=== PATIENT | male | born 1950 | race African-American/Black ===

== ENCOUNTER 2018-02-11 12:06 | Inpatient (IN) | payer MEDICARE, MEDICAID ==
[~2018-02-11] VITALS: Ht 193 cm; Wt 101.4 kg
[~2018-02-11 12:06] MED LIST: AMLO2.5T45 PO; HYDR-4133 PO
[2018-02-11 16:10] LABS: BASOPHILS % 0.6 % (0.0-2.0); EOSINOPHILS % 3.4 % (0.0-5.0); HEMOGLOBIN. 10.1 g/dL (14.0-18.0); LYMPHOCYTES % 31.9 % (20.0-50.0); MEAN CORPUSCULAR HEMOGLOBIN 25.6 pg (28.0-32.0); MEAN CORPUSCULAR VOLUME 78.4 fL (80.0-94.0); MEAN PLATELET VOLUME 7.8 fl (7.4-10.4); MONOCYTES % 11.6 % (2.0-8.0); NEUTROPHILS % 52.5 % (40.0-76.0); PLATELET 217 x1000/uL (130-400); RED BLOOD CELL COUNT 3.96 mill/uL (4.7-6.1); RED CELL DISTRIBUTION WIDTH 14.5 % (11.6-14.6)
[2018-02-11 16:15] LABS: CHLORIDE 110 mEq/L (98-107)
[2018-02-11 16:19] LABS: D-DIMER 0.35 mg/L FEU (<0.50); INR 1.1; PROTHROMBIN TIME 10.9 sec (9.1-11.1)
[2018-02-11] MEDS ORDERED: POTASSIUM CHLORIDE 20MEQ TABLET SR PO ONE (17:00)
[2018-02-11] MEDS ORDERED: CLONIDINE 0.1MG TABLET PO PRN (17:15)
[2018-02-11] MEDS ORDERED: ONDANSETRON HCL 4MG/2ML INJ IV PRN (17:15)
[2018-02-11] MEDS ORDERED: ACETAMINOPHEN 325MG TABLET PO PRN (17:15)
[2018-02-11] MEDS ORDERED: HYDROMORPHONE HCL/PF 2MG/ML CPJ IV PRN (23:00)
[2018-02-11 23:30] VITALS: BP 155/75
[2018-02-12] MEDS ORDERED: IPRATROPIUM/ALBUTEROL 0.5-3(2.5)MG/3ML NEB INH SCH
[2018-02-12] MEDS ORDERED: ROSU20TA PO (01:57)
[2018-02-12] MEDS ORDERED: TAMS-11 PO (01:58)
[2018-02-12] MEDS ORDERED: DOCU100T PO (01:58)
[2018-02-12] MEDS ORDERED: LACT10SO7 PO (02:00)
[2018-02-12] MEDS ORDERED: HYDR-4135 PO (02:00)
[2018-02-12] MEDS ORDERED: PREG50CA PO (02:01)
[2018-02-12] MEDS ORDERED: FAMO-135 PO (02:02)
[2018-02-12] MEDS ORDERED: AMLO10TA4 PO (02:02)
[2018-02-12] MEDS ORDERED: [UNRECOGNIZED DRUG - CODE] PO (02:02)
[2018-02-12] MEDS ORDERED: ACET-2178 PO (02:03)
[2018-02-12] MEDS ORDERED: CHOL200074 PO (02:04)
[2018-02-12] MEDS ORDERED: ONDA4SOL2 PO (02:05)
[2018-02-12 04:00] VITALS: BP 154/79
[2018-02-12 08:00] VITALS: BP 140/72
[2018-02-12] MEDS: FUROSEMIDE 40MG/4ML VIAL IV SCH (08:55)
[2018-02-12] MEDS ORDERED: ENOXAPARIN 40MG/0.4ML SYR SUBCUT SCH (09:00)
[2018-02-12] MEDS: POTASSIUM CHLORIDE 20MEQ TABLET SR PO SCH (11:27)
[2018-02-12 12:00] VITALS: BP 154/80
[2018-02-12] MEDS: AMLODIPINE 5MG TABLET PO SCH ×2 (13:50→21:47)
[2018-02-12 16:00] VITALS: BP 122/66
[2018-02-12] MEDS ORDERED: DEXTROSE 50% WATER 50ML SYRINGE IV PRN (19:00)
[2018-02-12 20:00] VITALS: BP 140/68
[2018-02-12] MEDS: BLOOD SUGAR DIAGNOSTIC STRIP TEST SCH (20:08)
[2018-02-12] MEDS: INSULIN LISPRO 100 UNITS/ML SUBCUT SCH (20:15)
[2018-02-12] MEDS: ENOXAPARIN 30MG/0.3ML SYR SUBCUT SCH (20:30)
[2018-02-12] MEDS: ATORVASTATIN CALCIUM 10MG TABLET PO SCH (20:30)
[2018-02-13] VITALS: BP 147/60
[2018-02-13 04:00] VITALS: BP 155/72
[2018-02-13] MEDS: BLOOD SUGAR DIAGNOSTIC STRIP TEST SCH ×4 (06:48→20:31)
[2018-02-13 07:44] LABS: CHLORIDE 113 mEq/L (98-107)
[2018-02-13] MEDS: INSULIN LISPRO 100 UNITS/ML SUBCUT SCH ×4 (07:50→20:44)
[2018-02-13 07:55] LABS: HDL CHOLESTEROL 40 mg/dL (40-59); LDL CHOLESTEROL 44 mg/dL (5-100); T4 FREE 1.26 ng/dL (0.76-1.46)
[2018-02-13 08:00] VITALS: BP 137/67
[2018-02-13] MEDS: POTASSIUM CHLORIDE 20MEQ TABLET SR PO SCH (08:57)
[2018-02-13] MEDS: FUROSEMIDE 40MG/4ML VIAL IV SCH (08:57)
[2018-02-13] MEDS: AMLODIPINE 5MG TABLET PO SCH ×2 (08:58→20:32)
[2018-02-13] MEDS: ENOXAPARIN 30MG/0.3ML SYR SUBCUT SCH ×2 (09:05→20:31)
[2018-02-13 12:00] VITALS: BP 138/75
[2018-02-13] MEDS ORDERED: POTASSIUM CHLORIDE 20MEQ TABLET SR PO NR ×2 (12:00→20:00)
[2018-02-13 16:00] VITALS: BP 141/62
[2018-02-13 20:00] VITALS: BP 155/72
[2018-02-13] MEDS: ATORVASTATIN CALCIUM 10MG TABLET PO SCH (20:32)
[2018-02-14] VITALS (7 sets, daily range): BP systolic 108–160; BP diastolic 67–88
[2018-02-14] MEDS: BLOOD SUGAR DIAGNOSTIC STRIP TEST SCH ×3 (06:24→17:20)
[2018-02-14] MEDS: INSULIN LISPRO 100 UNITS/ML SUBCUT SCH ×3 (07:50→17:50)
[2018-02-14] MEDS: POTASSIUM CHLORIDE 20MEQ TABLET SR PO SCH (09:08)
[2018-02-14] MEDS: FUROSEMIDE 40MG/4ML VIAL IV SCH (09:08)
[2018-02-14] MEDS: AMLODIPINE 5MG TABLET PO SCH (09:09)
[2018-02-14] MEDS: ENOXAPARIN 30MG/0.3ML SYR SUBCUT SCH (09:09)
[2018-02-15] MEDS ORDERED: FUROSEMIDE 20MG TABLET PO SCH (09:00)
[2018-02-15] MEDS ORDERED: ENOXAPARIN 40MG/0.4ML SYR SUBCUT SCH (09:00)
== END 2018-02-14 20:25 | DRG 291 ==
LOC: ER 12:06 → 6WST 16:49 → EDBEDREQ 18:20 → ENRESERV 20:35
PROVIDERS: ADMIT Internal Medicine Nephrology; ATTEND Internal Medicine Nephrology
DX: I11.0 Hypertensive heart disease with heart failure (principal); I50.21 Acute systolic (congestive) heart failure; R53.2 Functional quadriplegia; E44.0 Moderate protein-calorie malnutrition; I69.351 Hemiplegia and hemiparesis following cerebral infarction affecting right dominant side; I42.9 Cardiomyopathy, unspecified; D64.9 Anemia, unspecified; E11.42 Type 2 diabetes mellitus with diabetic polyneuropathy; E87.6 Hypokalemia; E78.00 Pure hypercholesterolemia, unspecified; E78.5 Hyperlipidemia, unspecified; G72.9 Myopathy, unspecified; M25.511 Pain in right shoulder; M25.542 Pain in joints of left hand; M25.541 Pain in joints of right hand; M48.02 Spinal stenosis, cervical region; K21.9 Gastro-esophageal reflux disease without esophagitis; N40.0 Benign prostatic hyperplasia without lower urinary tract symptoms; K57.90 Diverticulosis of intestine, part unspecified, without perforation or abscess without bleeding; R26.9 Unspecified abnormalities of gait and mobility; I50.810 Right heart failure, unspecified; M25.612 Stiffness of left shoulder, not elsewhere classified; M25.611 Stiffness of right shoulder, not elsewhere classified; M19.011 Primary osteoarthritis, right shoulder; Z53.29 Procedure and treatment not carried out because of patient's decision for other reasons; Z86.718 Personal history of other venous thrombosis and embolism; Z68.27 Body mass index [BMI] 27.0-27.9, adult; Z79.899 Other long term (current) drug therapy; Z74.01 Bed confinement status; Z88.0 Allergy status to penicillin
CPT/HCPCS: 36415; 70551; 71045; 72141; 72146; 72148; 73030; 73130; 80061; 82962; 83605; 83735; 83880; 84439; 84443; 84481; 84484; 85379; 93005; 93306; 93970; 97163; 97166; 99285; J1650; J1940

== ENCOUNTER 2018-07-09 09:28 | Inpatient (IN) | payer MEDICARE, MEDICAID ==
[~2018-07-09] VITALS: Ht 193 cm; Wt 86.6 kg
[~2018-07-09 09:28] MED LIST changes: +ACET-2178 PO; +AMLO10TA4 PO; +CHOL200074 PO; +DOCU100T PO; +FAMO-135 PO; +HYDR-4135 PO; +LACT10SO7 PO; +ONDA4SOL2 PO; +PREG50CA PO; +ROSU20TA2 PO; +TAMS-11 PO; +[UNRECOGNIZED DRUG - CODE] PO
[2018-07-09 10:17] LABS: BASOPHILS % 0.2 % (0.0-2.0); EOSINOPHILS % 4.3 % (0.0-5.0); HEMATOCRIT. 30.2 % (42.0-52.0); HEMOGLOBIN. 9.8 g/dL (14.0-18.0); LYMPHOCYTES % 37.2 % (20.0-50.0); MEAN CORPUSCULAR HEMOGLOBIN 23.9 pg (28.0-32.0); MEAN PLATELET VOLUME 6.9 fl (7.4-10.4); MONOCYTES % 9.8 % (2.0-8.0); NEUTROPHILS % 48.5 % (40.0-76.0); PLATELET 257 x1000/uL (130-400); RED BLOOD CELL COUNT 4.08 mill/uL (4.7-6.1); RED CELL DISTRIBUTION WIDTH 16.3 % (11.6-14.6)
[2018-07-09 10:23] LABS: CHLORIDE 109 mEq/L (98-107)
[2018-07-09 10:29] LABS: PROTHROMBIN TIME 10.7 sec (9.6-11.0)
[2018-07-09] MEDS ORDERED: POTASSIUM CHLORIDE 20MEQ TABLET SR PO ONE (10:45)
[2018-07-09] MEDS ORDERED: KCL 20MEQ/100ML PREMIX 100 ML IV ONE (10:45)
[2018-07-09] MEDS ORDERED: SODIUM CHLORIDE 0.45% 1,000 ML IV SCH (13:09)
[2018-07-09] MEDS ORDERED: CLONIDINE 0.1MG TABLET PO PRN (13:15)
[2018-07-09] MEDS ORDERED: ACETAMINOPHEN 325MG TABLET PO PRN (13:15)
[2018-07-09 15:39] LABS: HEMOGLOBIN 10.6 g/dL (14.0-18.0)
[2018-07-09 16:53] LABS: CLARITY URINE CLOUDY (CLEAR); COLOR URINE YELLOW (YELLOW); KETONES URINE NEGATIVE (NEGATIVE); LEUKOCYTE ESTERASE URINE 3+ (NEGATIVE); NITRITE URINE POSITIVE (NEGATIVE); OCCULT BLOOD URINE 1+ (NEGATIVE); PROTEIN URINE 2+ (NEGATIVE); UROBILINOGEN URINE 0.2 E.U./dL (0.2-1.0)
[2018-07-09 17:30] VITALS: BP 151/61
[2018-07-09 17:40] VITALS: BP 151/61
[2018-07-09] MEDS ORDERED: ASA5EC PO (19:44)
[2018-07-09 20:00] VITALS: BP 140/66
[2018-07-09] MEDS ORDERED: POTASSIUM CHLORIDE INJ 60 MEQ in DEXT 5% WATER 500 ML IV NR (20:00)
[2018-07-09] MEDS ORDERED: DEXTROSE 50% WATER 50ML SYRINGE IV PRN (20:00)
[2018-07-09] MEDS: INSULIN LISPRO 100 UNITS/ML SUBCUT SCH (21:00)
[2018-07-09] MEDS: LEVOFLOXACIN 250MG PREMIX 50 ML IV SCH (21:19)
[2018-07-09] MEDS: BLOOD SUGAR DIAGNOSTIC STRIP TEST SCH (21:20)
[2018-07-09] MEDS: OMEPRAZOLE 20MG CAPSULE EXTENDED RELEASE PO SCH ×2 (21:20→21:22)
[2018-07-10] VITALS: BP 165/67
[2018-07-10 04:00] VITALS: BP 103/64
[2018-07-10 06:33] LABS: BASOPHILS % 0.4 % (0.0-2.0); HEMATOCRIT. 29.8 % (42.0-52.0); HEMOGLOBIN. 9.8 g/dL (14.0-18.0); LYMPHOCYTES % 39.2 % (20.0-50.0); MEAN CORPUSCULAR HEMOGLOBIN 24.2 pg (28.0-32.0); MEAN CORPUSCULAR VOLUME 73.7 fL (80.0-94.0); MEAN PLATELET VOLUME 7.3 fl (7.4-10.4); MONOCYTES % 11.5 % (2.0-8.0); NEUTROPHILS % 42.9 % (40.0-76.0); PLATELET 237 x1000/uL (130-400); RED BLOOD CELL COUNT 4.04 mill/uL (4.7-6.1); RED CELL DISTRIBUTION WIDTH 16.1 % (11.6-14.6)
[2018-07-10] MEDS: BLOOD SUGAR DIAGNOSTIC STRIP TEST SCH ×4 (06:54→21:49)
[2018-07-10] MEDS: INSULIN LISPRO 100 UNITS/ML SUBCUT SCH ×4 (06:54→22:04)
[2018-07-10] MEDS: OMEPRAZOLE 20MG CAPSULE EXTENDED RELEASE PO SCH ×2 (07:00→21:48)
[2018-07-10 07:15] LABS: FOLIC ACID (FOLATE) SERUM 7.6 ng/mL (>5.38)
[2018-07-10 07:19] LABS: CHLORIDE 113 mEq/L (98-107)
[2018-07-10 07:32] LABS: LDL CHOLESTEROL 43 mg/dL (5-100)
[2018-07-10 07:34] LABS: TOTAL IRON BINDING CAPACITY 208 ug/dL (250-450)
[2018-07-10 07:35] LABS: HDL CHOLESTEROL 33 mg/dL (40-59)
[2018-07-10 08:00] VITALS: BP 124/63
[2018-07-10] MEDS ORDERED: DEXTROSE 5% WATER 1,000 ML IV SCH (11:00)
[2018-07-10 12:00] VITALS: BP 135/63
[2018-07-10] MEDS ORDERED: SORBITOL 70% SOLN 30ML PO SCH ×3 (12:00→22:00)
[2018-07-10] MEDS: IRON SUCROSE COMPLEX 100 MG/5 ML ML IV SCH (14:15)
[2018-07-10] MEDS: POTASSIUM CHLORIDE 20MEQ/PACKET PO SCH ×2 (14:15→17:03)
[2018-07-10 15:49] LABS: HEMATOCRIT 32.2 % (42.0-52.0); HEMOGLOBIN 10.4 g/dL (14.0-18.0)
[2018-07-10 16:00] VITALS: BP 137/68
[2018-07-10] MEDS: METOCLOPRAMIDE HCL 10MG/2ML VIAL IV SCH ×2 (17:00→21:48)
[2018-07-10 20:00] VITALS: BP 124/72
[2018-07-10] MEDS: ATORVASTATIN CALCIUM 10MG TABLET PO SCH (21:48)
[2018-07-10] MEDS: LEVOFLOXACIN 250MG PREMIX 50 ML IV SCH (21:49)
[2018-07-10] MEDS ORDERED: BISACODYL 5MG TABLET PO SCH (22:00)
[2018-07-11] VITALS: BP 131/71
[2018-07-11 00:19] LABS: HEMATOCRIT 34.5 % (42.0-52.0); HEMOGLOBIN 11.1 g/dL (14.0-18.0)
[2018-07-11 04:00] VITALS: BP 124/67
[2018-07-11] MEDS: OMEPRAZOLE 20MG CAPSULE EXTENDED RELEASE PO SCH ×2 (06:02→22:21)
[2018-07-11] MEDS: INSULIN LISPRO 100 UNITS/ML SUBCUT SCH ×4 (06:31→22:21)
[2018-07-11] MEDS: BLOOD SUGAR DIAGNOSTIC STRIP TEST SCH ×4 (06:31→21:00)
[2018-07-11 08:00] VITALS: BP 118/73
[2018-07-11] MEDS: POTASSIUM CHLORIDE 20MEQ/PACKET PO SCH ×3 (08:35→16:56)
[2018-07-11 08:49] LABS: BASOPHILS % 0.8 % (0.0-2.0); EOSINOPHILS % 3.9 % (0.0-5.0); HEMATOCRIT. 36.9 % (42.0-52.0); HEMOGLOBIN. 11.8 g/dL (14.0-18.0); LYMPHOCYTES % 30.8 % (20.0-50.0); MEAN CORPUSCULAR HEMOGLOBIN 23.6 pg (28.0-32.0); MEAN CORPUSCULAR VOLUME 74.2 fL (80.0-94.0); MEAN PLATELET VOLUME 7.6 fl (7.4-10.4); MONOCYTES % 9.6 % (2.0-8.0); NEUTROPHILS % 54.9 % (40.0-76.0); PLATELET 268 x1000/uL (130-400); RED BLOOD CELL COUNT 4.98 mill/uL (4.7-6.1); RED CELL DISTRIBUTION WIDTH 16.5 % (11.6-14.6)
[2018-07-11 09:02] LABS: PHOSPHORUS 2.5 mg/dL (2.5-4.9)
[2018-07-11] MEDS ORDERED: DEXT 5%/0.2% NACL KCL 20MEQ/L 1,000 ML IV ONE (09:30)
[2018-07-11] MEDS ORDERED: POTASSIUM CHLORIDE 20MEQ TABLET SR PO NR (10:00)
[2018-07-11] MEDS: LEVOFLOXACIN 250MG TABLET PO SCH (10:39)
[2018-07-11] MEDS ORDERED: [UNRECOGNIZED DRUG - OTHER] IV ONE (11:00)
[2018-07-11] MEDS ORDERED: POTASSIUM CHLORIDE INJ 60 MEQ in DEXT 5% WATER 500 ML IV ONE (11:00)
[2018-07-11] MEDS ORDERED: SODIUM CHLORIDE IV ONE (11:00)
[2018-07-11] MEDS ORDERED: LEVOFLOXACIN 250MG PREMIX 50 ML IV SCH (11:00)
[2018-07-11] MEDS ORDERED: POTASSIUM CHLORIDE IV ONE (11:00)
[2018-07-11 12:00] VITALS: BP 114/70
[2018-07-11] MEDS: ONDANSETRON HCL 4MG/2ML INJ IV PRN ×2 (12:31→22:50)
[2018-07-11] MEDS ORDERED: METOCLOPRAMIDE HCL 10MG/2ML VIAL IV SCH (13:15)
[2018-07-11] MEDS: IRON SUCROSE COMPLEX 100 MG/5 ML ML IV SCH (14:35)
[2018-07-11 16:00] VITALS: BP 118/72
[2018-07-11 17:06] LABS: HEMATOCRIT 38.9 % (42.0-52.0); HEMOGLOBIN 12.4 g/dL (14.0-18.0)
[2018-07-11 20:00] VITALS: BP 118/79
[2018-07-11] MEDS: ATORVASTATIN CALCIUM 10MG TABLET PO SCH (22:21)
[2018-07-12] VITALS: BP 100/67
[2018-07-12 01:19] LABS: HEMOGLOBIN 12.2 g/dL (14.0-18.0)
[2018-07-12 04:00] VITALS: BP 97/66
[2018-07-12] MEDS: INSULIN LISPRO 100 UNITS/ML SUBCUT SCH ×4 (06:20→20:47)
[2018-07-12] MEDS: BLOOD SUGAR DIAGNOSTIC STRIP TEST SCH ×4 (06:20→21:00)
[2018-07-12] MEDS: OMEPRAZOLE 20MG CAPSULE EXTENDED RELEASE PO SCH ×2 (06:21→20:42)
[2018-07-12 08:00] VITALS: BP 92/56
[2018-07-12] MEDS: POTASSIUM CHLORIDE 20MEQ/PACKET PO SCH ×3 (08:32→17:59)
[2018-07-12 10:04] LABS: BASOPHILS % 0.4 % (0.0-2.0); EOSINOPHILS % 0.2 % (0.0-5.0); HEMATOCRIT. 38.4 % (42.0-52.0); HEMOGLOBIN. 12.1 g/dL (14.0-18.0); LYMPHOCYTES % 11.8 % (20.0-50.0); MEAN CORPUSCULAR HEMOGLOBIN 23.6 pg (28.0-32.0); MEAN CORPUSCULAR VOLUME 74.9 fL (80.0-94.0); MEAN PLATELET VOLUME 7.7 fl (7.4-10.4); MONOCYTES % 5.4 % (2.0-8.0); NEUTROPHILS % 82.2 % (40.0-76.0); PLATELET 252 x1000/uL (130-400); RED BLOOD CELL COUNT 5.12 mill/uL (4.7-6.1); RED CELL DISTRIBUTION WIDTH 16.9 % (11.6-14.6)
[2018-07-12 10:19] LABS: PHOSPHORUS 3.6 mg/dL (2.5-4.9)
[2018-07-12] MEDS: LEVOFLOXACIN 250MG TABLET PO SCH (11:00)
[2018-07-12 12:00] VITALS: BP 85/55
[2018-07-12] MEDS: DEXT 5%/0.45% NACL KCL 40MEQ/L 1,000 ML IV SCH (13:57)
[2018-07-12] MEDS: IRON SUCROSE COMPLEX 100 MG/5 ML ML IV SCH (14:00)
[2018-07-12] MEDS ORDERED: SODIUM CHLORIDE 0.9% 150 ML IV ONE (14:00)
[2018-07-12] MEDS ORDERED: POTASSIUM CHLORIDE INJ 40 MEQ in DEXT 5% WATER 250 ML IV NR (14:00)
[2018-07-12 16:00] VITALS: BP 107/59
[2018-07-12 20:00] VITALS: BP 93/50
[2018-07-12] MEDS: ATORVASTATIN CALCIUM 10MG TABLET PO SCH (20:42)
[2018-07-13] VITALS: BP 93/42
[2018-07-13 04:00] VITALS: BP 95/54
[2018-07-13] MEDS: OMEPRAZOLE 20MG CAPSULE EXTENDED RELEASE PO SCH ×2 (06:37→21:47)
[2018-07-13] MEDS: INSULIN LISPRO 100 UNITS/ML SUBCUT SCH ×4 (06:38→21:00)
[2018-07-13] MEDS: BLOOD SUGAR DIAGNOSTIC STRIP TEST SCH ×4 (06:38→21:46)
[2018-07-13 07:11] LABS: BASOPHILS % 0.3 % (0.0-2.0); EOSINOPHILS % 3.4 % (0.0-5.0); HEMATOCRIT. 35.8 % (42.0-52.0); HEMOGLOBIN. 11.3 g/dL (14.0-18.0); LYMPHOCYTES % 36.2 % (20.0-50.0); MEAN CORPUSCULAR HEMOGLOBIN 23.8 pg (28.0-32.0); MEAN CORPUSCULAR VOLUME 75.3 fL (80.0-94.0); MEAN PLATELET VOLUME 7.5 fl (7.4-10.4); MONOCYTES % 11.2 % (2.0-8.0); NEUTROPHILS % 48.9 % (40.0-76.0); PLATELET 236 x1000/uL (130-400); RED BLOOD CELL COUNT 4.75 mill/uL (4.7-6.1); RED CELL DISTRIBUTION WIDTH 17.2 % (11.6-14.6)
[2018-07-13 08:00] VITALS: BP 111/62
[2018-07-13 09:00] LABS: PHOSPHORUS 3.5 mg/dL (2.5-4.9)
[2018-07-13] MEDS: POTASSIUM CHLORIDE 20MEQ/PACKET PO SCH ×3 (09:52→17:02)
[2018-07-13] MEDS: LEVOFLOXACIN 250MG TABLET PO SCH (11:27)
[2018-07-13 12:00] VITALS: BP 113/54
[2018-07-13 16:00] VITALS: BP 124/58
[2018-07-13] MEDS: IRON SUCROSE COMPLEX 100 MG/5 ML ML IV SCH (16:37)
[2018-07-13 20:00] VITALS: BP 133/68
[2018-07-13] MEDS: ATORVASTATIN CALCIUM 10MG TABLET PO SCH (21:47)
[2018-07-14] VITALS (7 sets, daily range): BP systolic 117–148; BP diastolic 63–76
[2018-07-14] MEDS: DEXT 5%/0.45% NACL KCL 40MEQ/L 1,000 ML IV SCH (05:12)
[2018-07-14] MEDS: BLOOD SUGAR DIAGNOSTIC STRIP TEST SCH ×4 (06:45→21:55)
[2018-07-14] MEDS: INSULIN LISPRO 100 UNITS/ML SUBCUT SCH ×4 (07:15→21:00)
[2018-07-14] MEDS: OMEPRAZOLE 20MG CAPSULE EXTENDED RELEASE PO SCH ×2 (08:00→21:52)
[2018-07-14 08:52] LABS: BASOPHILS % 0.4 % (0.0-2.0); EOSINOPHILS % 3.5 % (0.0-5.0); HEMATOCRIT. 33.4 % (42.0-52.0); HEMOGLOBIN. 10.6 g/dL (14.0-18.0); LYMPHOCYTES % 28.7 % (20.0-50.0); MEAN CORPUSCULAR HEMOGLOBIN 23.8 pg (28.0-32.0); MEAN CORPUSCULAR VOLUME 75.1 fL (80.0-94.0); MEAN PLATELET VOLUME 7.8 fl (7.4-10.4); MONOCYTES % 9.3 % (2.0-8.0); NEUTROPHILS % 58.1 % (40.0-76.0); PLATELET 215 x1000/uL (130-400); RED BLOOD CELL COUNT 4.44 mill/uL (4.7-6.1)
[2018-07-14] MEDS: POTASSIUM CHLORIDE 20MEQ/PACKET PO SCH ×3 (09:07→17:03)
[2018-07-14] MEDS ORDERED: POTASSIUM CHLORIDE 20MEQ/PACKET PO SCH (09:45)
[2018-07-14] MEDS: LEVOFLOXACIN 250MG TABLET PO SCH (11:25)
[2018-07-14] MEDS: IRON SUCROSE COMPLEX 100 MG/5 ML ML IV SCH (13:51)
[2018-07-14 14:36] LABS: PHOSPHORUS 2.8 mg/dL (2.5-4.9)
[2018-07-14] MEDS ORDERED: SORBITOL 70% SOLN 30ML PO NR (20:00)
[2018-07-14] MEDS ORDERED: METOCLOPRAMIDE HCL 10MG/2ML VIAL IV NR (20:00)
[2018-07-14] MEDS: ATORVASTATIN CALCIUM 10MG TABLET PO SCH (21:52)
[2018-07-15] VITALS (7 sets, daily range): BP systolic 128–183; BP diastolic 70–89
[2018-07-15] MEDS: OMEPRAZOLE 20MG CAPSULE EXTENDED RELEASE PO SCH ×2 (06:45→21:25)
[2018-07-15] MEDS: BLOOD SUGAR DIAGNOSTIC STRIP TEST SCH ×4 (07:02→21:25)
[2018-07-15] MEDS: INSULIN LISPRO 100 UNITS/ML SUBCUT SCH ×4 (07:15→21:00)
[2018-07-15] MEDS: POTASSIUM CHLORIDE 20MEQ/PACKET PO SCH ×3 (09:00→18:32)
[2018-07-15 09:34] LABS: BASOPHILS % 0.3 % (0.0-2.0); EOSINOPHILS % 4.3 % (0.0-5.0); HEMATOCRIT. 32.4 % (42.0-52.0); HEMOGLOBIN. 10.2 g/dL (14.0-18.0); LYMPHOCYTES % 29.9 % (20.0-50.0); MEAN CORPUSCULAR HEMOGLOBIN 23.8 pg (28.0-32.0); MEAN CORPUSCULAR VOLUME 75.3 fL (80.0-94.0); MEAN PLATELET VOLUME 7.5 fl (7.4-10.4); NEUTROPHILS % 57.5 % (40.0-76.0); PLATELET 220 x1000/uL (130-400); RED CELL DISTRIBUTION WIDTH 17.1 % (11.6-14.6)
[2018-07-15] MEDS: LEVOFLOXACIN 250MG TABLET PO SCH (11:00)
[2018-07-15] MEDS ORDERED: FENTANYL CITRATE/PF 50MCG/ML 2ML VIAL ONE (13:22)
[2018-07-15] MEDS ORDERED: MIDAZOLAM HCL 5 MG/5 ML VIAL ONE (13:22)
[2018-07-15] MEDS ORDERED: MIDAZOLAM HCL 5 MG/5 ML VIAL IV PRN (13:28)
[2018-07-15] MEDS ORDERED: FENTANYL CITRATE/PF 50MCG/ML 2ML VIAL IV PRN (13:29)
[2018-07-15] MEDS ORDERED: BACTERIOSTATIC SODIUM CHLORIDE 0.9% 30ML VIAL IJ ONE (13:33)
[2018-07-15] MEDS: SULFAMETHOXAZOLE/TRIMETHOPRIM 400/80MG TAB PO SCH (18:32)
[2018-07-15] MEDS: ATORVASTATIN CALCIUM 10MG TABLET PO SCH (21:25)
[2018-07-15] MEDS ORDERED: AMLODIPINE 10MG TABLET PO NR (22:00)
[2018-07-16] VITALS: BP 156/76
[2018-07-16 04:00] VITALS: BP 147/89
[2018-07-16] MEDS: BLOOD SUGAR DIAGNOSTIC STRIP TEST SCH (06:38)
[2018-07-16] MEDS: INSULIN LISPRO 100 UNITS/ML SUBCUT SCH (06:38)
[2018-07-16] MEDS: OMEPRAZOLE 20MG CAPSULE EXTENDED RELEASE PO SCH (06:39)
[2018-07-16 08:00] VITALS: BP 128/74
[2018-07-16] MEDS ORDERED: AMLODIPINE 10MG TABLET PO SCH (09:00)
[2018-07-16] MEDS: POTASSIUM CHLORIDE 20MEQ/PACKET PO SCH (09:44)
[2018-07-16] MEDS: SULFAMETHOXAZOLE/TRIMETHOPRIM 400/80MG TAB PO SCH (09:44)
== END 2018-07-16 12:30 | DRG 377 ==
LOC: ER 09:28 → 5WST 12:04 → ENRESERV 15:21
PROVIDERS: ADMIT Internal Medicine Nephrology; ATTEND Internal Medicine Nephrology
PROC: 0DBH8ZZ Excision of Cecum, Via Natural or Artificial Opening Endoscopic (ICD-10-PCS; principal; 2018-07-15)
DX: K57.31 Diverticulosis of large intestine without perforation or abscess with bleeding (principal); E43 Unspecified severe protein-calorie malnutrition; I42.9 Cardiomyopathy, unspecified; I69.351 Hemiplegia and hemiparesis following cerebral infarction affecting right dominant side; N39.0 Urinary tract infection, site not specified; E87.2 Acidosis; E46 Unspecified protein-calorie malnutrition; D12.3 Benign neoplasm of transverse colon; E87.6 Hypokalemia; E86.0 Dehydration; K21.9 Gastro-esophageal reflux disease without esophagitis; D12.0 Benign neoplasm of cecum; N18.9 Chronic kidney disease, unspecified; E11.22 Type 2 diabetes mellitus with diabetic chronic kidney disease; I13.10 Hypertensive heart and chronic kidney disease without heart failure, with stage 1 through stage 4 chronic kidney disease, or unspecified chronic kidney disease; E78.00 Pure hypercholesterolemia, unspecified; E78.5 Hyperlipidemia, unspecified; I49.3 Ventricular premature depolarization; M19.011 Primary osteoarthritis, right shoulder; D50.0 Iron deficiency anemia secondary to blood loss (chronic); I44.0 Atrioventricular block, first degree; M51.9 Unspecified thoracic, thoracolumbar and lumbosacral intervertebral disc disorder; D12.2 Benign neoplasm of ascending colon; R26.9 Unspecified abnormalities of gait and mobility; I95.9 Hypotension, unspecified; B95.1 Streptococcus, group B, as the cause of diseases classified elsewhere; B96.20 Unspecified Escherichia coli [E. coli] as the cause of diseases classified elsewhere; B96.4 Proteus (mirabilis) (morganii) as the cause of diseases classified elsewhere; Z79.4 Long term (current) use of insulin; Z86.711 Personal history of pulmonary embolism; Z88.0 Allergy status to penicillin; Z79.899 Other long term (current) drug therapy; Z79.82 Long term (current) use of aspirin; Z68.23 Body mass index [BMI] 23.0-23.9, adult; Z12.11 Encounter for screening for malignant neoplasm of colon
CPT/HCPCS: 36415; 71045; 74176; 76770; 80048; 80061; 82270; 82553; 82570; 82607; 82728; 82746; 82962; 83540; 83550; 83735; 83930; 84100; 84132; 84156; 84443; 84484; 85014; 85018; 86850; 86900; 87077; 87186; 88305; 93005; 93306; 93970; 96361; 96365; 97162; 97167; 99152; 99291; J1815; J1956; J2250; J2405; J2765; J3010; J3480; J3490; J7040; J7060; J7070; J7131; A4315; G0500